=== PATIENT | male | born 1985 | race Caucasian/White ===

== ENCOUNTER 2024-05-19 06:45 | Emergency (ER) | payer OTHER ==
[~2024-05-19] VITALS: Ht 185.4 cm; Wt 116.7 kg
[2024-05-19] MEDS ORDERED: SUBOXONE 12 MG1 EACH SL (07:01)
[2024-05-19 07:14] LABS: HEMATOCRIT 44.5 % (35.0-50.0); HEMOGLOBIN 15.1 g/dL (12.0-18.0); MCH 33.3 (27-36); MCHC 33.9 g/dl (30-36); MCV 98.3 fl (81-99); PLATELET COUNT 382 K/uL (140-440); RBC 4.53 M/ul (4.3-5.7); RDW 13.7 (10.5-15.0)
[2024-05-19] MEDS ORDERED: HYDROmorphone HCL 1 MG/ML SYR IV PRN ×2 (07:15→08:00)
[2024-05-19] MEDS ORDERED: ondansetron HCL 4 MG/2 ML VIAL IV ONE (07:15)
[2024-05-19] MEDS ORDERED: SODIUM CHLORIDE 0.9% 1,000 ML IV ONE (07:15)
[2024-05-19 07:20] LABS: BILIRUBIN, URINE NEGATIVE (negative); BLOOD/HGB, URINE NEGATIVE (Negative); KETONE, URINE NEGATIVE (Negative); LEUK ESTERASE, URINE NEGATIVE (negative); NITRITE, URINE NEGATIVE (negative)
[2024-05-19 07:39] LABS: EOSINOPHILS, MANUAL DIFF 1; LYMPHOCYTES, MANUAL DIFF 58; MONOCYTES, MANUAL DIFF 7; NEUTROPHILS, MANUAL DIFF 34
[2024-05-19 07:40] LABS: ALBUMIN 3.4 g/dL (3.4-5.0); ALBUMIN/GLOBULIN RATIO 0.72 (1.1-2.4); ANION GAP 15.7 (7-21); BILIRUBIN, TOTAL 0.3 ng/dL (0.2-1.0); BUN/CREATININE RATIO 12.19 (6.0-28.6); CREATININE, SERUM 0.82 mg/dL (0.70-1.30); POTASSIUM 3.7 mmol/L (3.5-5.1); PROTEIN, TOTAL 8.1 g/dL (6.4-8.2)
[2024-05-19] MEDS ORDERED: AMP/SULBACTAM SOD 3 GM VIAL IV ONE (08:26)
[2024-05-19] MEDS ORDERED: ONDANSETRON ODT8 MG PO (08:26)
[2024-05-19] MEDS ORDERED: AMOX TR-K CLV1 EAC1 PO (08:26)
[2024-05-19] MEDS ORDERED: AMP/SULBACTAM SOD 3 GM in SODIUM CHLORIDE 0.9% 100 ML IV ONE (08:30)
[2024-05-19] MEDS ORDERED: METHADONE HCL 10 MG TAB PO ONE (08:45)
[2024-05-19 09:16] VITALS: BP 146/76
== END 2024-05-19 09:17 | disposition home or self-care (01) ==
LOC: ED 06:45
PROVIDERS: Emergency Medicine
DX: K52.9 Noninfective gastroenteritis and colitis, unspecified (principal); Z79.899 Other long term (current) drug therapy; Z88.8 Allergy status to other drugs, medicaments and biological substances
CPT/HCPCS: 36415; 74177; 80053; 81003; 83690; 85025; J0295; J1170; J2405; J7030; Q9967